=== PATIENT | female | born 2000 | race Caucasian/White ===

== ENCOUNTER 2023-08-30 17:22 | Emergency (ER) | payer SELFPAY ==
[2023-08-30 17:32] VITALS: BP 145/93; PULSE 97; RESP 20; TEMP 37.3; O2SAT 100
--- NOTE | 2023-08-30 18:35 | ED.EYEPROB ---
HPI - Eye Problem General Chief complaint: Eye Problems Stated complaint: FB in Left eye Time Seen by Provider: 08/30/23 18:01 Source: patient, RN notes reviewed and old records reviewed Mode of arrival: ambulatory Limitations: no limitations History of Present Illness HPI Narrative: 23-year-old female to [facility] for complaint of left eye discomfort. Patient states she is attempting to pain a frame on a wall at home and believes that she drywall dust eye. Patient states she flushed at home for 10-15 minutes with water without relief. Patient denies photophobia or visual changes. Patient denies use of contacts or glasses. Related Data Allergies Allergy/AdvReac Type Severity Reaction Status Date / Time Cat Dander Allergy Unknown Unknown Uncoded 08/30/23 18:49 Klaus Allergy Unknown Unknown Uncoded 08/30/23 18:49 Review of Systems Review of Systems: All systems reviewed & are unremarkable except as noted in HPI and below Constitutional: Constitutional: Reports no additional constitutional complaints Eyes: Eyes: Reports as per HPI, Denies change in vision, Denies diplopia, Reports irritation ( Left), Denies loss of vision, Denies other visual disturbances, Denies photophobia and Denies spots in vision ENT: Reports system reviewed and no additional complaints, except as documented Cardiovascular: Cardiovascular: Reports no additional cardiovascular complaints, Denies chest pain and Denies dyspnea Respiratory: Respiratory: Reports no additional respiratory complaints, Denies cough and Denies dyspnea Musculoskeletal: Musculoskeletal: Reports no additional musculoskeletal complaints Neurologic: Reports system reviewed and no additional complaints, except as documented Psychiatric: Psychiatric: Reports no additional psychiatric complaints PMFSH Comments At the time of my signature, I reviewed and agree with the nursing past medical, surgical, social, and family history. There is no relevant family history pertinent to the patient complaint. Exam Const: General: cooperative, healthy appearing, comfortable, no acute distress, alert and well nourished Nutritional Appearance: well nourished Orientation/consciousness: patient oriented x3 Limitations: no limitations HENMT: Head: normal to inspection Ears: external ears normal Face/Nose/Sinus: Normal external nose present, Normal nares present, normal facial exam, No erythema and No edema Face and sinus: normal facial exam, no erythema and no edema Mouth: Yes Normal oral and palatal mucosa present Eyes: Visual Salter: normal visual salter by confrontation Alignment and Position: alignment normal and position normal Periorbital: periorbital findings normal Eyelids: eyelids normal Conjunctivae: conjunctival abnormality left conjunctival injection Sclera: scleral abnormality left scleral injection medial Cornea: corneas normal Pupils: Equal, round and reactive pupils present, Pupils normal by confrontation and Pupil accommodation reflex normal Direct Ophthalmoscopy: normal light reflex and no photophobia Other: with Wood's lamp examination scleral abrasion noted directly below cornea. no foreign body noted Neck: Neck: normal visual inspection, full ROM and no meningeal signs Lymphatic: no lymphadenopathy noted and no lymphedema noted Chest: Chest palpation & inspection: normal inspection of the chest Resp: Effort & Inspection: normal respiratory effort and able to speak in complete sentences Auscultation: clear to auscultation bilaterally Cardio: Jugular venous distension: no JVD Rate: regular rate Rhythm: regular rhythm Back/Spine/Pelvis: Cervical Spine: cervical ROM normal Skin: General skin exam: normal color, no rashes or lesions noted and turgor normal Neuro: General: patient oriented x3, gait normal, moves all extremities and no meningeal signs Speech: normal speech Gait exam (Neuro): Normal gait present Extrem: General: normal to inspection, full
== END 2023-08-30 18:53 | disposition home or self-care (01) ==
PROVIDERS: Emergency Provider Nurse Practitioner Family
DX: S05.02XA Injury of conjunctiva and corneal abrasion without foreign body, left eye, initial encounter (principal); X58.XXXA Exposure to other specified factors, initial encounter
CPT/HCPCS: 99213; A9270; G0463

== ENCOUNTER 2024-09-04 10:45 | Emergency (ER) | payer OTHER, SELFPAY ==
[2024-09-04 10:57] VITALS: BP 134/76; PULSE 101; RESP 18; TEMP 36.8; O2SAT 100
[2024-09-04 11:44] LABS: EDUAAPPEAR Cloudy; EDUABILI Negative (Negative); EDUABLOOD Trace (Negative); EDUACOLOR1 Yellow; EDUAGLUCOSE Negative (Negative); EDUAKETONE Negative (Negative); EDUALEUKO Negative (Negative); EDUANITRATE Negative (Negative); EDUAPROTEIN Negative (Negative); EDUAUROBILI 0.2
--- NOTE | 2024-09-04 11:45 | ED.GENADULT ---
HPI - General Adult General Chief complaint: Urogenital-Female Stated complaint: STD Exposure Source: patient Mode of arrival: ambulatory Limitations: no limitations History of Present Illness HPI narrative: Patient presents with concerns about potential chlamydia exposure. She indicates her boyfriend tested positive for chlamydia few days ago. He was experiencing urinary frequency which prompted his testing. They have not been sexually active since his treatment. She denies any vaginal discharge or urinary symptoms. They engage in oral and vaginal sex. She denies sore throat. She is adherent to oral contraception. She is actively menstruating. Related Data Allergies Allergy/AdvReac Type Severity Reaction Status Date / Time Cat Dander Allergy Unknown Unknown Uncoded 09/04/24 11:03 Klaus Allergy Unknown Unknown Uncoded 09/04/24 11:03 Review of Systems Review of Systems: CONSTITUTIONAL: Denies fever, chills, or sweats. EYES: Denies visual changes, redness, or discharge. ENT: Denies rhinorrhea, congestion, sore throat, or otalgia. CARDIOVASCULAR: Denies chest pain, palpitations, or edema. RESPIRATORY: Denies cough or dyspnea. GASTROINTESTINAL: Denies abdominal pain, nausea, vomiting, or diarrhea. GENITOURINARY: Denies dysuria or hematuria. Denies vaginal bleeding or discharge. SKIN: Denies rash or itching. MUSCULOSKELETAL: Denies back pain, joint pain, or myalgia. NEUROLOGIC: Denies headache, numbness, dizziness, or weakness. PSYCHIATRIC: Denies anxiety or depression. PMFSH Past Medical History Medical History No pertinent past medical history Surgical History Surgical History No pertinent past surgical history Family History Family History Mother Family history non-contributory Social History Social History Substance use: never Gender identity (if verbalized by the patient): Female Sexual Orientation (if Verbalized by the Patient): Straight or Heterosexual Spiritual care concerns: No Exam Narrative: GENERAL: Well-appearing, well-nourished, and in no acute distress. HEAD: Normocephalic, atraumatic. EYES: PERRLA and EOMI. ENT: Nares clear, no rhinorrhea or epistaxis. Mucous membranes moist. Oropharynx without tonsillar hypertrophy exudate or other lesions. Bilateral TMs pearly neely nonbulging NECK: Supple. No adenopathy or masses. No carotid bruits or JVD CHEST: Clear to auscultation. No respiratory distress. No wheezes rales or rhonchi HEART: Regular rate and rhythm. No murmur heard. Normal peripheral pulses. ABDOMEN: Soft, nontender, nondistended, normal active bowel sounds. EXTREMITIES: Normal range of motion. No edema. SKIN: Warm, dry, no rash. NEURO: No focal deficits. Alert and oriented x3. PSYCH: Normal mood and affect. Course Course Emergency Course: This is a 24-year-old female who presented with concerns of potential chlamydia exposure. She elected to be empirically treated today. She declined empiric treatment for gonorrhea or Trichomonas. We did obtain urine testing for gonorrhea, chlamydia and Trichomonas and pharyngeal testing for gonorrhea and chlamydia. Advise she remain sexually abstinent until 7 days after both she and her partner complete her therapy. I also recommended she have comprehensive STI testing performed. Patient should follow up with primary provider and go to the ER for worsening symptoms. She is in agreement with plan of care. Level of Care: Express Care Visit Vital Signs Vital signs: Vital Signs Temperature 36.8 C 09/04/24 10:57 Pulse Rate 101 H 09/04/24 10:57 Respiratory Rate 18 09/04/24 10:57 Blood Pressure 134/76 09/04/24 10:57 Pulse Oximetry 100 09/04/24 10:57 Oxygen Delivery Room Air 09/04/24 10:57 Temperature 36.8 C 09/04/24 10:57 Pulse Rate 101 H 09/04/24 10:57 Respiratory Rate 18 09/04/24 10:57 Blood Pressure 134/76 09/04/24 10:57 Pulse Oximetry 100 09/04/24 10:57 Oxygen Delivery Room Air 09/04/24 10:57 Medical Decision Making Vital Signs Vital Signs: Vital Signs Temperature 36.8 C 09/04/24 10:57 Pulse Rate 101 H 09/04/24 10:57 Respiratory Rate 18 09/04/24 10:57 Blood Pressure 134/76 09/04/24 10:57 Pulse Oximetry 100 09/04/24 10:57 Oxygen Delivery Room Air 09/04/24 10:57 Temperature 36.8 C 09/04/24 10:57 Pulse Rate 101 H 09/04/24 10:57 Respiratory Rate 18 09/04/24 10:57 Blood Pressure 134/76 09/04/24 10:57 Pulse Oximetry 100 09/04/24 10:57 Oxygen Delivery Room Air 09/04/24 10:57 Lab Data Labs: Lab Results 09/04/24 Range/Units 11:41 POC Urine Color Yellow POC Urine Clarity Cloudy POC Urine pH 6.0 POC Ur Specif Mascot 1.030 POC Urine Protein Negative (Negative) POC Ur Glucose (UA) Negative (Negative) POC Urine Ketones Negative (Negative) POC Urine Blood Trace (Negative) POC Urine Nitrite Negative (Negative) POC Urine Bilirubin Negative (Negative) POC Urine Urobilinogen 0.2 POC U Leukocyte Esteras Negative (Negative) Discharge Plan Discharge Clinical Impression: Exposure to chlamydia Patient Disposition: Home Condition: Stable Instructions: Antibiotic Form, Chlamydia (ED), Safe Sex Practices (ED) Patient Language: Bhutanese Prescriptions: New doxycycline hyclate 100 mg tablet 100 mg PO BID Qty: 14 0RF Follow-up/Referrals: Steve Sher MD [Physician] - Time of Disposition: 11:40
[2024-09-04 21:04] LABS: Chlamydia trachomatis NOT DETECTED (NOT DETECTE); Neisseria gonorrhoeae PCR NOT DETECTED (NOT DETECTE)
[2024-09-04 21:06] LABS: Trichomonas Vag PCR NOT DETECTED (NOT DETECTE)
[2024-09-04 21:29] LABS: Chlamydia trachomatis DETECTED (NOT DETECTE); Neisseria gonorrhoeae PCR NOT DETECTED (NOT DETECTE)
== END 2024-09-04 11:47 | disposition home or self-care (01) ==
PROVIDERS: Emergency Provider Nurse Practitioner
DX: Z20.2 Contact with and (suspected) exposure to infections with a predominantly sexual mode of transmission (principal)
CPT/HCPCS: 81003; 87491; 87591; 87661; 99213; G0463